=== PATIENT | male | born 1945 | race Caucasian/White ===

== ENCOUNTER 2021-10-12 13:59 | Inpatient (IN) | payer MEDICARE ==
[~2021-10-12] VITALS: Ht 177.8 cm; Wt 79.4 kg
--- NOTE | 2021-10-12 14:33 | NUR ---
Called crisis team. Art made aware and patient will be evaluated for a hold.
[2021-10-12] MEDS ORDERED: ACET-73 PO (14:49)
[2021-10-12] MEDS ORDERED: QUET50TA PO (14:49)
[2021-10-12] MEDS ORDERED: DIVA250T PO (14:49)
[2021-10-12] MEDS ORDERED: ZOLP5TAB2 PO (14:49)
[2021-10-12] MEDS ORDERED: ATOR20TA PO (14:49)
[2021-10-12] MEDS ORDERED: TAMS-3 PO (14:49)
[2021-10-12] MEDS ORDERED: METO-358 PO (14:49)
[2021-10-12] MEDS ORDERED: VITAMIN D3 PO (14:49)
[2021-10-12] MEDS ORDERED: ZIPRASIDONE MESYLATE 20 MG VIAL IM ONE ×2 (15:43→15:45)
--- NOTE | 2021-10-12 16:05 | NUR ---
Gave report to ROYAL Moe. Patient going to room 140B
--- NOTE | 2021-10-12 16:58 | NUR ---
Gps/Table Top Tile Setter- Received report stanley Gardner RN. Admitted patient from ER via wheel chair. Patient, alert, oriented to self , anxious, fidgety. Gait unsteady, patient received Geodon 2.5 IM in the ER as per report . Patient was put on the cassius- chair r/t to patient difficulty following direction, unsteady gait , potential for fall. Kept infront of the Nurses Patient is confused, speech incoherent. Upon face to face with patient , unable to provide information necessary during the admission. Per hydraulic riveterROYAL Davis , she tries to call Dr Moulton (Psychiatrist) , waiting for return call.
[2021-10-12] MEDS ORDERED: ACETAMINOPHEN 325 MG TABLET PO PRN (17:15)
[2021-10-12] MEDS ORDERED: MAGNESIUM HYDROXIDE 30 ML LIQUID UDC PO PRN (17:15)
[2021-10-12] MEDS ORDERED: MAG HYDROX/AL HYDROX/SIMETH 30 ML LIQUID UDC PO PRN (17:15)
[2021-10-12] MEDS ORDERED: BLOOD SUGAR DIAGNOSTIC 1 EACH STRIP VI ONE (17:30)
[2021-10-12] MEDS ORDERED: ZIPRASIDONE MESYLATE 20 MG VIAL IM PRN (17:45)
--- NOTE | 2021-10-12 18:43 | NUR ---
Gps/Splicing Machine Operator Automatic- Patient remains up in his cassius-chair, Fed self after set up. Refused blood sugar check this pm. Patient remains incoherent, speech, confused safety emphasized. Refused Blood sugar check this pm, tries to grabbed staff.
[2021-10-12 20:27] VITALS: BP 110/60
[2021-10-12] MEDS: LORAZEPAM 0.5 MG TABLET PO PRN (21:01)
[2021-10-12] MEDS: TEMAZEPAM 15 MG CAPSULE PO PRN (21:01)
--- NOTE | 2021-10-13 04:04 | NUR ---
Patient awake but confused, uncooperative with care, refused medications at first, but took his meds later on. Patient episode of resistive with care, with combative behavior, offered food and water while seated in reclining chair. Patient slept most of the night, quiet, given prn sleeping meds with effective results, cont to monitor.
[2021-10-13 07:20] LABS: THYROID STIMULATING HORMONE 2.113 mIU/mL (0.358-3.740)
[2021-10-13 07:30] VITALS: BP 139/55
[2021-10-13 07:44] LABS: ALANINE AMINOTRANSFERASE 16 U/L (16-63); ALKALINE PHOSPHATASE 72 U/L (50-136); ASPARTATE AMINOTRANSFERASE 23 U/L (15-37); BILIRUBIN,TOTAL 0.3 mg/dL (0.2-1.0); CARBON DIOXIDE 31 mmol/L (21-32); CHLORIDE 106 mmol/L (98-107); CREATININE 2.6 mg/dL (0.6-1.3); GLUCOSE 86 mg/dL (74-106); MAGNESIUM 2.1 mg/dL (1.8-2.4); PHOSPHOROUS 3.9 mg/dL (2.5-4.9); POTASSIUM 4.5 mmol/L (3.5-5.1); TOTAL PROTEIN, SERUM 6.1 g/dL (6.4-8.2); UREA NITROGEN, BLOOD 45 mg/dL (7-18)
[2021-10-13 08:15] LABS: HEMATOCRIT 36.1 % (36.7-47.1); MEAN CORPUSCULAR HEMOGLOBIN 32.3 uug (23.8-33.4); MEAN CORPUSCULAR VOLUME 96.7 fL (73.0-96.2); PLATELET COUNT (AUTO) 192 K/uL (152-348)
[2021-10-13] MEDS: METOPROLOL SUCCINATE XL 50 MG TAB.SR.24H PO SCH (08:49)
[2021-10-13] MEDS: CHOLECALCIFEROL 1,000 UNIT TABLET PO SCH (08:49)
--- NOTE | 2021-10-13 10:02 | NUR ---
Gps/Block Trimmer- Patient was oob to chair during his breakafst, able to feed self after set up. Compliant with am routine meds, taken whole ,prompted and verbal cues sequencing his tasks, Speech incoherent ,confused..Ambulated by P.T. slightly unsteady gait, no devices needed , safety emphasized.
--- NOTE | 2021-10-13 15:19 | NUR ---
B[facility] Initial Discharge Note: Pt currently resides at [id number] [place] [address] ([phone]). It is uncertain at this time if pt is going to return to [facility]. BARRINGTON will contact the pt's niece, Юлия ([phone]) and pt's sister, Nicolle ([phone]) to discuss the pt's discharge plan. BARRINGTON will continue to work with pt, family and MD to ensure a safe and proper discharge plan.
--- NOTE | 2021-10-13 15:22 | NUR ---
Firearms Report: Gateman completed and submitted a [employer] firearms report for 5150 grave disability certifications. A copy of report has been placed in patient chart.
[2021-10-13 16:00] VITALS: BP 124/70
--- NOTE | 2021-10-13 17:00 | NUR ---
Gps/Chief Controller Station- Stayed up on his cassius-chair by the Nurses station for close supervision, and safety. Had been trying to feed self after set up . PM care done. Confused , disoriented , verbal cueing with 1 step command was provided to patient in sequencing his tasks. Patient follows simple directions , approached patient in a calm voice. .No agitation noted.
[2021-10-13 19:58] VITALS: BP 129/62
[2021-10-13] MEDS: TAMSULOSIN HCL 0.4 MG CAP.SR.24H PO SCH (21:27)
[2021-10-13] MEDS: DONEPEZIL 5 MG TABLET PO SCH (21:27)
[2021-10-13] MEDS: ATORVASTATIN 20 MG TABLET PO SCH (21:27)
[2021-10-13] MEDS: TEMAZEPAM 15 MG CAPSULE PO PRN (23:46)
[2021-10-14] MEDS: METOPROLOL SUCCINATE XL 50 MG TAB.SR.24H PO SCH (08:11)
[2021-10-14] MEDS: CHOLECALCIFEROL 1,000 UNIT TABLET PO SCH (08:12)
[2021-10-14 08:13] VITALS: BP 141/96
--- NOTE | 2021-10-14 09:00 | NUR ---
Gps/Milk Sampler- On his cassius-chair during initial rounds, had early am shower , feeding self ind. after set up. Had been compliant with medications , administered whole, 1 pill at a time. Able to follow 1 step command, remains confused, incoherent speech. Fluids offered, encouraged skin extremely dry, tenting, patches of scabs to his extremities noted.
[2021-10-14] MEDS: DIVALPROEX ER 500 MG TAB.SR.24H PO SCH (10:04)
[2021-10-14 11:44] LABS: HEMATOCRIT 38.2 % (36.7-47.1); MEAN CORPUSCULAR HEMOGLOBIN 32.3 uug (23.8-33.4); MEAN CORPUSCULAR VOLUME 96.7 fL (73.0-96.2); PLATELET COUNT (AUTO) 246 K/uL (152-348)
[2021-10-14 11:51] LABS: CARBON DIOXIDE 30 mmol/L (21-32); CHLORIDE 107 mmol/L (98-107); CREATININE 3.1 mg/dL (0.6-1.3); GLUCOSE 87 mg/dL (74-106); POTASSIUM 4.5 mmol/L (3.5-5.1); UREA NITROGEN, BLOOD 49 mg/dL (7-18)
[2021-10-14 16:34] VITALS: BP 101/62
[2021-10-14 20:00] VITALS: BP 133/69
[2021-10-14] MEDS: ATORVASTATIN 20 MG TABLET PO SCH (20:41)
[2021-10-14] MEDS: DONEPEZIL 5 MG TABLET PO SCH (20:41)
[2021-10-14] MEDS: TAMSULOSIN HCL 0.4 MG CAP.SR.24H PO SCH (20:41)
[2021-10-14] MEDS: LORAZEPAM 0.5 MG TABLET PO PRN (20:41)
[2021-10-14] MEDS: TEMAZEPAM 15 MG CAPSULE PO PRN (23:28)
--- NOTE | 2021-10-15 03:59 | NUR ---
Received patient in bed, awake, alert but confused and unable to state his name or engage in any type of conversation, also unable to answer yes or no questions. During the night , he has gotten up out of bed a few times, gait unsteady. Multiple BMs this shift. The patient strikes out at staff providing care. Safety Stratiges are in place. Continuing to monitor for combative behavior and compliance.
[2021-10-15 07:30] VITALS: BP 147/109
[2021-10-15] MEDS: METOPROLOL SUCCINATE XL 50 MG TAB.SR.24H PO SCH (08:09)
[2021-10-15] MEDS: DIVALPROEX ER 500 MG TAB.SR.24H PO SCH (08:09)
[2021-10-15] MEDS: CHOLECALCIFEROL 1,000 UNIT TABLET PO SCH (08:09)
[2021-10-15] MEDS ORDERED: IV NS 1000 ML 1,000 ML IV ONE (10:00)
--- NOTE | 2021-10-15 11:55 | NUR ---
Gps/Graduate Advisor- Saline lock angio # 22 inserted to his right upper arm, IV fluids of NS 1000 ml bolus was ordered by Lizbeth HERNANDEZ started at 250 ml/hr, infusing well via IV pump, kept patient by the Nurses station closely monitored safety.
--- NOTE | 2021-10-15 14:10 | NUR ---
TGps/Formula Bottler- Patient pulled out present IV line. Restarted new IV line let upper arm, secured site, kerlix applied to protect present IV site angio# 22 left upper arm , Same IVF of NS bolus now in progress, via IV pump., monitored patient closely preventing patient in disrupting IV infusion
--- NOTE | 2021-10-15 15:42 | NUR ---
Gps/Fork Truck Driver- Dr Lainez (Neurologist )was called again, reminding him on the Neuro consult that was ordered few day ago , will see patient tomorrow.
[2021-10-15 16:00] VITALS: BP 113/57
[2021-10-15 20:16] VITALS: BP 133/67
[2021-10-15] MEDS: TAMSULOSIN HCL 0.4 MG CAP.SR.24H PO SCH (21:05)
[2021-10-15] MEDS: LORAZEPAM 0.5 MG TABLET PO PRN (21:05)
[2021-10-15] MEDS: DONEPEZIL 5 MG TABLET PO SCH (21:05)
[2021-10-15] MEDS: ATORVASTATIN 20 MG TABLET PO SCH (21:06)
--- NOTE | 2021-10-16 06:40 | NUR ---
Patient was up and down during the night. Frequent bowel movements. Combative with the staff providing care. Shower given and safety stratiges are in place. Total sleep hours were 4.00. Continuing to monitor for behavior escalation.
[2021-10-16 07:45] VITALS: BP 127/57
[2021-10-16 07:53] LABS: CARBON DIOXIDE 29 mmol/L (21-32); CHLORIDE 108 mmol/L (98-107); CREATININE 2.8 mg/dL (0.6-1.3); GLUCOSE 88 mg/dL (74-106); MAGNESIUM 2.1 mg/dL (1.8-2.4); PHOSPHOROUS 3.1 mg/dL (2.5-4.9); POTASSIUM 4.6 mmol/L (3.5-5.1); UREA NITROGEN, BLOOD 45 mg/dL (7-18)
[2021-10-16 08:17] LABS: HEMATOCRIT 37.6 % (36.7-47.1); MEAN CORPUSCULAR HEMOGLOBIN 32.5 uug (23.8-33.4); MEAN CORPUSCULAR VOLUME 97.6 fL (73.0-96.2); PLATELET COUNT (AUTO) 221 K/uL (152-348)
[2021-10-16] MEDS: CHOLECALCIFEROL 1,000 UNIT TABLET PO SCH (08:45)
[2021-10-16] MEDS: DIVALPROEX ER 500 MG TAB.SR.24H PO SCH (08:46)
[2021-10-16] MEDS: METOPROLOL SUCCINATE XL 50 MG TAB.SR.24H PO SCH (08:46)
[2021-10-16 16:23] VITALS: BP 133/61
[2021-10-16 19:53] VITALS: BP 138/62
[2021-10-16] MEDS: TAMSULOSIN HCL 0.4 MG CAP.SR.24H PO SCH (21:00)
[2021-10-16] MEDS: LORAZEPAM 0.5 MG TABLET PO PRN (21:00)
[2021-10-16] MEDS: DONEPEZIL 5 MG TABLET PO SCH (21:00)
[2021-10-16] MEDS: ATORVASTATIN 20 MG TABLET PO SCH (21:01)
--- NOTE | 2021-10-17 06:23 | NUR ---
Patient slept well, 8.30. A couple bowel movements during the night. Less combative with the staff providing care . Up to the chair this am. Able to stand with assist. Safety Stratiges remain in place. Continuing to monitor for aggressive or combative behavior.
[2021-10-17 07:03] LABS: HEMATOCRIT 41.1 % (36.7-47.1); MEAN CORPUSCULAR HEMOGLOBIN 32.3 uug (23.8-33.4); MEAN CORPUSCULAR VOLUME 96.2 fL (73.0-96.2); PLATELET COUNT (AUTO) 236 K/uL (152-348)
[2021-10-17 07:18] LABS: ALANINE AMINOTRANSFERASE 22 U/L (16-63); ALKALINE PHOSPHATASE 76 U/L (50-136); ASPARTATE AMINOTRANSFERASE 22 U/L (15-37); BILIRUBIN,DIRECT 0.1 mg/dL (0.0-0.2); BILIRUBIN,TOTAL 0.5 mg/dL (0.2-1.0); CARBON DIOXIDE 28 mmol/L (21-32); CHLORIDE 108 mmol/L (98-107); CREATINE KINASE, TOTAL 98 U/L (39-308); CREATININE 2.9 mg/dL (0.6-1.3); GLUCOSE 87 mg/dL (74-106); MAGNESIUM 2.2 mg/dL (1.8-2.4); POTASSIUM 4.6 mmol/L (3.5-5.1); TOTAL PROTEIN, SERUM 7.1 g/dL (6.4-8.2); UREA NITROGEN, BLOOD 46 mg/dL (7-18)
[2021-10-17 07:30] VITALS: BP 136/64
[2021-10-17] MEDS: DIVALPROEX ER 500 MG TAB.SR.24H PO SCH (08:43)
[2021-10-17] MEDS: CHOLECALCIFEROL 1,000 UNIT TABLET PO SCH (08:43)
[2021-10-17] MEDS: METOPROLOL SUCCINATE XL 50 MG TAB.SR.24H PO SCH (08:44)
--- NOTE | 2021-10-17 09:57 | NUR ---
BARRINGTON Family Contact: BARRINGTON contacted pt's niece Юлия ([phone]) to discuss pt's discharge plan. Юлия informed this curriculum writer to contact pt's sister Nicolle ([phone]) who is fully involved in patient's care.
--- NOTE | 2021-10-17 10:03 | NUR ---
BARRINGTON Family Contact: BARRINGTON contacted pt's sister, Nicolle ([phone]) who is fully involved in patient's care. Nicolle stated she is the DPOA and she is agreeable to patient discharging to a secured fdc facility per Dr. Moulton's recommendation. BARRINGTON asked Nicolle to fax this curriculum writer DPOA paperwork and Nicolle stated she will. Nicolle also provided pt's hx information to relay to the psychiatrist and stated she is thankful and agreeable with the care.
[2021-10-17] MEDS: LORAZEPAM 0.5 MG TABLET PO PRN (15:17)
--- NOTE | 2021-10-17 15:22 | NUR ---
Patient is given Ativan 0.5 mg at 15:17 for anxiety and agitation, will be monitored for effectiveness.
--- NOTE | 2021-10-17 15:33 | NUR ---
Received patient sleeping in his room. Alert and disoriented, confused, disorganized, flat, withdrawn, anxious at times, combative with nursing care. Pt. is compliant with medications. Reassurance given. Fall and safety precautions implemented.
[2021-10-17 15:47] VITALS: BP 129/74
[2021-10-17] MEDS ORDERED: LORA-258 PO (16:38)
--- NOTE | 2021-10-17 20:30 | NUR ---
RECEIVED PATIENT IN THE HALLWAY SITTING IN A EMRE CHAIR. HE IS NOTED CONFUSED, HE IS UNABLE TO HAVE A MEANINGFUL CONVERSATION WITH THIS LADIES UNDERWEAR OPERATOR. CONVERSATION WITH THIS LADIES UNDERWEAR OPERATOR. PATIENT IN NO DISTRESS. HIS V/S ARE STABLE, HE IS REASSURED FOR HIS SAFETY. SAFETY AND FALL PRECAUTIONS ARE IN PLACE. WILL CONTINUE TO MONITOR.
[2021-10-17] MEDS: ATORVASTATIN 20 MG TABLET PO SCH (20:38)
[2021-10-17] MEDS: DONEPEZIL 5 MG TABLET PO SCH (20:38)
[2021-10-17] MEDS: TAMSULOSIN HCL 0.4 MG CAP.SR.24H PO SCH (20:39)
[2021-10-17 20:55] VITALS: BP 143/71
[2021-10-17] MEDS: DIVALPROEX ER 250 MG TAB.SR.24H PO SCH (21:00)
[2021-10-17] MEDS: TEMAZEPAM 15 MG CAPSULE PO PRN (21:38)
[2021-10-18 07:05] LABS: HEMATOCRIT 37.9 % (36.7-47.1); MEAN CORPUSCULAR HEMOGLOBIN 32.4 uug (23.8-33.4); MEAN CORPUSCULAR VOLUME 97.4 fL (73.0-96.2); PLATELET COUNT (AUTO) 215 K/uL (152-348)
[2021-10-18 07:07] LABS: A/G RATIO 0.9 (0.7-1.7); ALBUMIN 3.1 g/dL (2.9-4.4); ALPHA-1-GLOBULIN 0.2 g/dL (0.0-0.4); GLOBULIN, TOTAL 3.3 g/dL (2.2-3.9); M-SPIKE Not Observed g/dL (Not Observed)
[2021-10-18 07:25] LABS: ALANINE AMINOTRANSFERASE 17 U/L (16-63); ALKALINE PHOSPHATASE 83 U/L (50-136); ASPARTATE AMINOTRANSFERASE 16 U/L (15-37); BILIRUBIN,TOTAL 0.3 mg/dL (0.2-1.0); CARBON DIOXIDE 28 mmol/L (21-32); CHLORIDE 110 mmol/L (98-107); CREATINE KINASE, TOTAL 70 U/L (39-308); CREATININE 2.9 mg/dL (0.6-1.3); GLUCOSE 89 mg/dL (74-106); MAGNESIUM 2.3 mg/dL (1.8-2.4); PHOSPHOROUS 3.8 mg/dL (2.5-4.9); POTASSIUM 4.7 mmol/L (3.5-5.1); TOTAL PROTEIN, SERUM 6.8 g/dL (6.4-8.2); UREA NITROGEN, BLOOD 53 mg/dL (7-18)
[2021-10-18 07:54] VITALS: BP 131/69
[2021-10-18] MEDS: DIVALPROEX ER 500 MG TAB.SR.24H PO SCH (09:11)
[2021-10-18] MEDS: CHOLECALCIFEROL 1,000 UNIT TABLET PO SCH (09:11)
[2021-10-18] MEDS: METOPROLOL SUCCINATE XL 50 MG TAB.SR.24H PO SCH (09:14)
--- NOTE | 2021-10-18 16:11 | NUR ---
Received patient sleeping in his room. Alert and disoriented, confused, mute, flat, combative with nursing care. Pt. is compliant with medications. Requires more than minimal assistance with ADL. Emotional support provided. Fall and safety precautions implemented.
[2021-10-18 16:30] VITALS: BP 119/73
[2021-10-18] MEDS: LORAZEPAM 0.5 MG TABLET PO SCH (17:06)
[2021-10-18 20:42] VITALS: BP 94/67
[2021-10-18] MEDS: DONEPEZIL 5 MG TABLET PO SCH (20:53)
[2021-10-18] MEDS: ATORVASTATIN 20 MG TABLET PO SCH (20:53)
[2021-10-18] MEDS: DIVALPROEX ER 250 MG TAB.SR.24H PO SCH (20:53)
[2021-10-18] MEDS: TAMSULOSIN HCL 0.4 MG CAP.SR.24H PO SCH (21:07)
[2021-10-19 06:06] LABS: A/G RATIO 0.9 (0.7-1.7); ALBUMIN 2.8 g/dL (2.9-4.4); ALPHA-1-GLOBULIN 0.2 g/dL (0.0-0.4); ALPHA-2-GLOBULIN 0.8 g/dL (0.4-1.0); GLOBULIN, TOTAL 3.1 g/dL (2.2-3.9); M-SPIKE Not Observed g/dL (Not Observed)
[2021-10-19 07:30] VITALS: BP 145/77
[2021-10-19] MEDS: CHOLECALCIFEROL 1,000 UNIT TABLET PO SCH (10:10)
[2021-10-19] MEDS: METOPROLOL SUCCINATE XL 50 MG TAB.SR.24H PO SCH (10:11)
[2021-10-19] MEDS: DIVALPROEX ER 500 MG TAB.SR.24H PO SCH (10:11)
[2021-10-19 16:00] VITALS: BP 134/65
[2021-10-19] MEDS: LORAZEPAM 0.5 MG TABLET PO SCH (18:10)
--- NOTE | 2021-10-19 18:50 | NUR ---
Received patient sleeping in his room. Alert and disoriented, confused, quiet. Pt. is compliant with medications. Maximal assistance with ADL. Reassurance given. Fall and safety precautions implemented.
[2021-10-19 20:00] VITALS: BP 136/95
[2021-10-19] MEDS: TAMSULOSIN HCL 0.4 MG CAP.SR.24H PO SCH (20:14)
[2021-10-19] MEDS: DIVALPROEX ER 250 MG TAB.SR.24H PO SCH (20:14)
[2021-10-19] MEDS: ATORVASTATIN 20 MG TABLET PO SCH (20:14)
[2021-10-19] MEDS: DONEPEZIL 5 MG TABLET PO SCH (20:14)
--- NOTE | 2021-10-19 20:30 | NUR ---
RECEIVED PATIENT IN THE HALLWAY SITTING IN A EMRE CHAIR CLOSED TO THE NURSING STATION FOR SAFETY. PATIENT IS A/O X 1, CONFUSED, DISORGANIZED SPEECH, AFFECT IS FLAT, MOOD IS LOW. PATIENT IS UNABLE TO HAVE A MEANINGFUL CONVERSATION WITH THIS OPERATIONS SUPERVISOR 2ND SHIFT. IS V/S ARE STABLE. HE IS IN NO DISTRESS, PO FLUIDS AND SNACKS WERE GIVEN TO PATIENT. HE IS REASSURED FOR HIS SAFETY, SAFETY AND FALL PRECAUTION IN PLACE. WILL CONTINUE TO MONITOR.
--- NOTE | 2021-10-20 03:21 | NUR ---
a urine specimen was able to be collected from patient per MD order. Will sent to lab for urinalysis and C&S. will monitor for results
[2021-10-20 04:10] LABS: *BILIRUBIN,URIN NEGATIVE (NEGATIVE); *BLOOD, URINE NEGATIVE (NEGATIVE); *CLARITY,URINE CLEAR (CLEAR); *COLOR,URINE YELLOW (YELLOW); *KETONES,URINE NEGATIVE (NEGATIVE); *UROBILINOGEN,URINE 0.2 E.U./dl (NORMAL); LEUKOCYTE ESTERASE ,URINE NEGATIVE (NEGATIVE); NITRITE, URINE NEGATIVE (NEGATIVE); PH,URINE 7.5 (5.0-8.0); UGLUCOSE NEGATIVE (NEGATIVE)
[2021-10-20 04:27] LABS: *CREATININE,URINE 46.8 mg/dL (30-125); *URINE TOTAL PROTEIN RANDOM 52.4 mg/dL (<150/24HR)
[2021-10-20 04:38] LABS: BACTERIA,URINE NONE SEEN /HPF (NONE SEEN); RBC,URINE 0-3 /HPF (0-3); SQUAMOUS EPITHELIAL CELL,UR NONE SEEN /HPF (NONE SEEN); WBC,URINE 0-3 /HPF (0-3)
[2021-10-20 06:55] LABS: CARBON DIOXIDE 27 mmol/L (21-32); CHLORIDE 108 mmol/L (98-107); CREATININE 3.3 mg/dL (0.6-1.3); GLUCOSE 86 mg/dL (74-106); POTASSIUM 4.9 mmol/L (3.5-5.1); UREA NITROGEN, BLOOD 66 mg/dL (7-18)
[2021-10-20 08:13] VITALS: BP 144/55
[2021-10-20] MEDS: DIVALPROEX ER 500 MG TAB.SR.24H PO SCH (09:00)
[2021-10-20] MEDS: CHOLECALCIFEROL 1,000 UNIT TABLET PO SCH (09:01)
[2021-10-20] MEDS: METOPROLOL SUCCINATE XL 50 MG TAB.SR.24H PO SCH (09:01)
[2021-10-20] MEDS: LORAZEPAM 0.5 MG TABLET PO PRN (09:15)
--- NOTE | 2021-10-20 12:32 | NUR ---
SNF Referral: SW faxed patient's referral packet including: History and Physical, Consultation, Progress Notes, Medication List and Labs to the following facilities for review and possible nursing home placement: [facility] located at [address] [place] [id number] ([phone]) F: [phone]
[2021-10-20 15:15] VITALS: BP 123/69
--- NOTE | 2021-10-20 16:23 | NUR ---
Received patient up to cassius-chair confused and disoriented assisted with all ADLS,compliant with all medication ,ativan given 1 dose as prn ordered,no aggressive behavior noted ,continue same treatment plan.
[2021-10-20] MEDS: LORAZEPAM 0.5 MG TABLET PO SCH (17:06)
[2021-10-20 19:56] VITALS: BP 137/67
[2021-10-20] MEDS: TAMSULOSIN HCL 0.4 MG CAP.SR.24H PO SCH (20:37)
[2021-10-20] MEDS: DONEPEZIL 5 MG TABLET PO SCH (20:37)
[2021-10-20] MEDS: TEMAZEPAM 15 MG CAPSULE PO PRN (20:38)
[2021-10-20] MEDS: ATORVASTATIN 20 MG TABLET PO SCH (20:38)
[2021-10-20] MEDS: DIVALPROEX ER 250 MG TAB.SR.24H PO SCH (20:38)
--- NOTE | 2021-10-21 03:27 | NUR ---
Received patient in bed, awake, confused, only responding to name and touch. Patient is total care, compliant with medications, combative at nursing care at times. Patient given snacks and fluids. Patient slept well, no behavioral issues noted during shift. Closely monitoring observed.
[2021-10-21] MEDS ORDERED: IV NS 1000 ML 1,000 ML IV ONE (05:45)
[2021-10-21 08:11] VITALS: BP 114/67
[2021-10-21] MEDS: DIVALPROEX ER 500 MG TAB.SR.24H PO SCH (08:43)
[2021-10-21] MEDS: METOPROLOL SUCCINATE XL 50 MG TAB.SR.24H PO SCH (08:43)
[2021-10-21] MEDS: CHOLECALCIFEROL 1,000 UNIT TABLET PO SCH (08:43)
[2021-10-21 09:12] LABS: CARBON DIOXIDE 24 mmol/L (21-32); CHLORIDE 106 mmol/L (98-107); CREATININE 3.4 mg/dL (0.6-1.3); GLUCOSE 89 mg/dL (74-106); POTASSIUM 4.8 mmol/L (3.5-5.1); UREA NITROGEN, BLOOD 68 mg/dL (7-18)
[2021-10-21 16:16] VITALS: BP 115/49
[2021-10-21] MEDS: LORAZEPAM 0.5 MG TABLET PO SCH (16:50)
--- NOTE | 2021-10-21 18:00 | NUR ---
patient up to cassius-chair total care to all ADLS, confused and disoriented,received 1L of NS ivf tolerated well. patient is agitation at time pulled the iv the end of shift .compliant with all po medication.
[2021-10-21 20:00] VITALS: BP 149/84
[2021-10-21] MEDS: DIVALPROEX ER 250 MG TAB.SR.24H PO SCH (20:17)
[2021-10-21] MEDS: DONEPEZIL 5 MG TABLET PO SCH (20:17)
[2021-10-21] MEDS: TAMSULOSIN HCL 0.4 MG CAP.SR.24H PO SCH (20:17)
[2021-10-21] MEDS: ATORVASTATIN 20 MG TABLET PO SCH (21:00)
[2021-10-21] MEDS: TEMAZEPAM 15 MG CAPSULE PO PRN (21:31)
--- NOTE | 2021-10-22 05:58 | NUR ---
patient slept 9.5 hrs ,shower given.
[2021-10-22 08:01] VITALS: BP 161/94
[2021-10-22 08:41] LABS: CARBON DIOXIDE 26 mmol/L (21-32); CHLORIDE 109 mmol/L (98-107); CREATININE 3.1 mg/dL (0.6-1.3); GLUCOSE 86 mg/dL (74-106); POTASSIUM 4.7 mmol/L (3.5-5.1); UREA NITROGEN, BLOOD 62 mg/dL (7-18)
[2021-10-22] MEDS: DIVALPROEX ER 500 MG TAB.SR.24H PO SCH (08:47)
[2021-10-22] MEDS: METOPROLOL SUCCINATE XL 50 MG TAB.SR.24H PO SCH (08:47)
[2021-10-22] MEDS: CHOLECALCIFEROL 1,000 UNIT TABLET PO SCH (08:47)
--- NOTE | 2021-10-22 14:58 | NUR ---
Received patient sleeping in his room. Alert and disoriented, withdrawn, confused, mute, low energy, non interactive. Pt. is compliant with medications. Total care. Emotional care provided. Fall and safety precautions implemented.
[2021-10-22 16:16] VITALS: BP 163/72
[2021-10-22] MEDS: LORAZEPAM 0.5 MG TABLET PO SCH (17:32)
[2021-10-22 20:01] VITALS: BP 127/60
--- NOTE | 2021-10-22 20:30 | NUR ---
RECEIVED PATIENT IN THE HALLWAY SITTING IN A EMRE CHAIR NEAR THE NURSING STATION. HE IS NOTED CONFUSED, FLAT AFFECT, MOOD IS LABILE, HE IS UNABLE TO HAVE A MEANINGFUL CONVERSATION WITH THIS CLINICAL INFORMATICS STRATEGIST. PATIENT IS COMPLIANT WITH HIS MEDICATION REGIMENT. HE IS REASSURED FOR HIS SAFETY. SAFETY AND FALL PRECAUTION ARE IN PLACE. HE WAS GIVEN PO FLUIDS ANS SNACKS. V/S STABLE, PT IN NO DISTRESS. WILL CONTINUE TO MONITOR.
[2021-10-22] MEDS: ATORVASTATIN 20 MG TABLET PO SCH (20:43)
[2021-10-22] MEDS: DONEPEZIL 5 MG TABLET PO SCH (20:43)
[2021-10-22] MEDS: DIVALPROEX ER 250 MG TAB.SR.24H PO SCH (20:43)
[2021-10-22] MEDS: TAMSULOSIN HCL 0.4 MG CAP.SR.24H PO SCH (20:43)
[2021-10-23 07:21] LABS: HEMATOCRIT 40.6 % (36.7-47.1); MEAN CORPUSCULAR HEMOGLOBIN 31.9 uug (23.8-33.4); MEAN CORPUSCULAR VOLUME 96.7 fL (73.0-96.2); PLATELET COUNT (AUTO) 219 K/uL (152-348)
[2021-10-23 07:45] VITALS: BP 132/72
[2021-10-23 07:45] LABS: ALANINE AMINOTRANSFERASE 13 U/L (16-63); ALKALINE PHOSPHATASE 65 U/L (50-136); ASPARTATE AMINOTRANSFERASE 19 U/L (15-37); BILIRUBIN,TOTAL 0.4 mg/dL (0.2-1.0); CARBON DIOXIDE 26 mmol/L (21-32); CHLORIDE 109 mmol/L (98-107); CREATININE 3.1 mg/dL (0.6-1.3); GLUCOSE 81 mg/dL (74-106); MAGNESIUM 2.4 mg/dL (1.8-2.4); PHOSPHOROUS 4.2 mg/dL (2.5-4.9); POTASSIUM 4.2 mmol/L (3.5-5.1); TOTAL PROTEIN, SERUM 6.9 g/dL (6.4-8.2); UREA NITROGEN, BLOOD 56 mg/dL (7-18)
[2021-10-23] MEDS: CHOLECALCIFEROL 1,000 UNIT TABLET PO SCH (08:28)
[2021-10-23] MEDS: DIVALPROEX ER 500 MG TAB.SR.24H PO SCH (08:28)
[2021-10-23] MEDS: METOPROLOL SUCCINATE XL 50 MG TAB.SR.24H PO SCH (08:29)
[2021-10-23] MEDS: LORAZEPAM 0.5 MG TABLET PO PRN (13:07)
--- NOTE | 2021-10-23 15:59 | NUR ---
patient up to cassius-chair total care to all ADLS, confused and disoriented with poor insight and poor judgement ,compliant with all po medication.will continue same treatment plan.
[2021-10-23 16:04] VITALS: BP 124/66
[2021-10-23] MEDS: LORAZEPAM 0.5 MG TABLET PO SCH (16:52)
[2021-10-23 19:57] VITALS: BP 118/60
--- NOTE | 2021-10-23 20:30 | NUR ---
RECEIVED PATIENT IN HIS ROOM IN BED, HE IS NOTED SLEEPING BUT EASILY AROUSABLE. PT IN NO DISTRESS. HE IS CONFUSED AND HE IS UNABLE TO HAVE A MEANINGFUL CONVERSATION WITH THIS HOME DEPOT REP. PATIENT IS COMPLIANT WITH HIS MEDICATION REGIMENT. NO AGGRESSIVE OR COMBATIVE BX IS NOTED AT THIS TIME. HE IS REASSURED FOR HIS SAFETY. SAFETY AND FALL PRECAUTIONS ARE IN PLACE. HE WAS GIVEN PLENTY OF PO FLUIDS AND SNACKS. V/S STABLE, PT IN NO DISTRESS. WILL CONTINUE TO MONITOR.
[2021-10-23] MEDS: DONEPEZIL 5 MG TABLET PO SCH (20:58)
[2021-10-23] MEDS: TAMSULOSIN HCL 0.4 MG CAP.SR.24H PO SCH (20:58)
[2021-10-23] MEDS: DIVALPROEX ER 250 MG TAB.SR.24H PO SCH (20:58)
[2021-10-23] MEDS: ATORVASTATIN 20 MG TABLET PO SCH (20:58)
[2021-10-24 07:30] VITALS: BP 152/77
--- NOTE | 2021-10-24 09:56 | NUR ---
BARRINGTON Family Contact Update: BARRINGTON contacted pt's sister Nicolle ([phone]) who is fully involved in patient's care. Nicolle is informed and agreeable with the pt's discharge to [facility] upon discharge this week. BARRINGTON will also refer pt to [facility] per nicolle's request. Nicolle is aware and agreeable that pt is currently accepted at [facility].
[2021-10-24] MEDS: DIVALPROEX ER 500 MG TAB.SR.24H PO SCH (10:03)
[2021-10-24] MEDS: CHOLECALCIFEROL 1,000 UNIT TABLET PO SCH (10:03)
[2021-10-24] MEDS: METOPROLOL SUCCINATE XL 50 MG TAB.SR.24H PO SCH (10:04)
--- NOTE | 2021-10-24 11:15 | NUR ---
SNF Referral: SW faxed patient's referral packet including: History and Physical, Consultation, Progress Notes, Medication List and Labs to the following facilities for review and possible alf placement: [facility] located at [address] [place] [address] ([phone]). F:[phone] per pt's sister's request closer to [facility].
[2021-10-24 15:00] VITALS: BP 94/54
--- NOTE | 2021-10-24 15:34 | NUR ---
Received patient sleeping in his room. Patient is quiet, disoriented, withdrawn, confused, not engage in verbal interaction. Pt. is compliant with medications. Total care. Emotional care provided. Fall and safety precautions implemented.
--- NOTE | 2021-10-24 15:56 | NUR ---
BARRINGTON Family Contact: SW contacted pt's sister Nicolle ([phone]) and informed her that pt is accepted to [facility] located at [address] [place] [address] ([phone]) for discharge tomorrow from [facility]. Nicolle was grateful that it is close to home and agreeable with discharge tomorrow. Psychiatrist Dr. Moulton is aware.
--- NOTE | 2021-10-24 15:59 | NUR ---
BARRINGTON Discharge Update: BARRINGTON contacted pt's sister, Nicolle ([phone]) and informed her that pt is accepted to her requested facility [facility] located at [address] [place] [address] ([phone]) for discharge tomorrow from [facility]. Nicolle is aware and agreeable. Psychiatrist, Dr. Moulton is aware and agreeable.
[2021-10-24] MEDS: LORAZEPAM 0.5 MG TABLET PO SCH (16:45)
[2021-10-24 20:04] VITALS: BP 118/66
[2021-10-24] MEDS: DIVALPROEX ER 250 MG TAB.SR.24H PO SCH (20:16)
[2021-10-24] MEDS: ATORVASTATIN 20 MG TABLET PO SCH (20:16)
[2021-10-24] MEDS: DONEPEZIL 5 MG TABLET PO SCH (20:17)
[2021-10-24] MEDS: TAMSULOSIN HCL 0.4 MG CAP.SR.24H PO SCH (20:17)
--- NOTE | 2021-10-25 05:12 | NUR ---
Received patient in bed, awake, confused, only responding to name and touch. Patient is total care, compliant with medications, combative with nursing care at times. Patient given snacks and fluids, with minimal intake. Covid swab done, for d/c in the AM. Fall precaution in place.
[2021-10-25 07:30] VITALS: BP 121/78
[2021-10-25] MEDS: DIVALPROEX ER 500 MG TAB.SR.24H PO SCH (09:30)
[2021-10-25] MEDS: CHOLECALCIFEROL 1,000 UNIT TABLET PO SCH (09:30)
[2021-10-25 09:31] VITALS: BP 121/78
[2021-10-25] MEDS: METOPROLOL SUCCINATE XL 50 MG TAB.SR.24H PO SCH (09:31)
--- NOTE | 2021-10-25 10:34 | NUR ---
BARRINGTON Discharge Note: Pt will be discharged to [facility] [address] [address]) [phone] via FACILITY TRANSPORTATION by non-emergency medical transport that is wheelchair accessible between 1:30-2PM. Drivers name is Pee. BARRINGTON spoke with admin coordinator, Brittney Corley and eYsenia at the facility who state they are ready to accept the patient today. BARRINGTON spoke with pts sister/DPOA Nicolle ([phone]) who is aware and agreeable with the discharge plan. Pt is alert and oriented x0, is unable to plan for self-care at this time. Pt does not appear with any suicidal or homicidal ideation. Pt is cleared by MD and Psychiatrist to discharge to a SNF. Pt will follow-up at the facility with Psychiatrist, Dr. Aguayo and Change Of Address Clerk, Dr. Soto. Pt presents with calm mood and congruent affect. PHARMACY: [facility] [address] [facility] .
--- NOTE | 2021-10-25 13:00 | NUR ---
Received patient awake in the hallway. Patient is withdrawn, confused, forgetful, nonl interactive. Pt. is compliant with medications and cooperative with nursing care. Requires maximal assistance with ADL. Reassurance provided. Fall and safety precautions implemented.
--- NOTE | 2021-10-25 15:16 | NUR ---
Received orders to discharge this patient to [facility] by Facility transportation. Pt. was agreeable with discharge plans. All belongings were returned to patient. Patient left the unit at 15:15. Emotional support provided. Fall and safety precautions implemented.
== END 2021-10-25 15:15 | DRG 885 ==
LOC: ER 13:59 → GPS 16:17
PROVIDERS: ADMIT Psychiatry & Neurology Psychiatry; ATTEND Nurse Practitioner Acute Care
DX: F29 Unspecified psychosis not due to a substance or known physiological condition (principal); F05 Delirium due to known physiological condition; N18.4 Chronic kidney disease, stage 4 (severe); N17.9 Acute kidney failure, unspecified; G93.41 Metabolic encephalopathy; F01.51 Vascular dementia, unspecified severity, with behavioral disturbance; F02.81 Dementia in other diseases classified elsewhere, unspecified severity, with behavioral disturbance; I12.9 Hypertensive chronic kidney disease with stage 1 through stage 4 chronic kidney disease, or unspecified chronic kidney disease; G30.9 Alzheimer's disease, unspecified; E78.5 Hyperlipidemia, unspecified; F41.9 Anxiety disorder, unspecified; R32 Unspecified urinary incontinence; N40.0 Benign prostatic hyperplasia without lower urinary tract symptoms; Z20.822 Contact with and (suspected) exposure to COVID-19; D63.8 Anemia in other chronic diseases classified elsewhere
CPT/HCPCS: 36415; 71045; 76770; 80164; 83735; 83970; 84100; 84155; 84156; 84165; 84300; 84443; 85025; 93005; 97161; A4663; J3486; J7040